=== PATIENT | female | born 1990 | race Caucasian/White ===

== ENCOUNTER 2023-09-06 09:24 | Outpatient (CLI) | payer MEDICARE, SELFPAY ==
--- NOTE | 2023-09-06 09:32 | XR_ITS ---
FINAL REPORT CLINICAL HISTORY: left ankle pain,fall FINDINGS: LEFT ANKLE Three views demonstrate an oblique, nondisplaced distal fibular fracture. Mortise is intact. An overlying cast is noted. The visualized joint spaces are normally aligned. There is diffuse soft tissue edema. IMPRESSION: Oblique, nondisplaced fracture of the distal fibula. Reviewed, Interpreted and Dictated by Jeff Malave MD Transcribed by Adri Zaman Authenticated and [facility]
[2023-09-06 12:16] LABS: Basophils # 0.1 K/mm3 (0-0.2); Basophils % 0.7 % (0.1-2.0); Eosinophils # 0.1 K/mm3 (0.0-0.4); Eosinophils % 0.8 % (0.1-12.0); Hematocrit 42.4 % (37.0-47.0); Hemoglobin 13.4 g/dL (12.2-16.2); Lymphocytes # 1.6 K/mm3 (0.7-4.5); Lymphocytes % 17.3 % (10-50); Mean Corpuscular HGB Conc 31.6 g/dL (31.8-35.4); Mean Corpuscular Hemoglobin 28.3 pg (27.0-31.2); Mean Corpuscular Volume 89.5 fl (81-99); Mean Platelet Volume 9.2 fl (7.4-10.4); Monocytes # 0.5 K/mm3 (0.1-1.0); Monocytes % 4.9 % (1.7-9.3); Neutrophils # 7.3 K/mm3 (1.8-7.8); Neutrophils % 76.4 % (37.0-80.0); Platelet Count 308 K/mm3 (142-424); Red Blood Count 4.74 M/mm3 (4.20-5.40); Red Cell Distribution Width 13.6 % (11.5-17.5); White Blood Count 9.5 K/mm3 (4.8-10.8)
[2023-09-06 12:39] LABS: Alanine Aminotransferase 88 U/L (12-78); Albumin Level 4.4 g/dl (3.5-5.0); Albumin/Globulin Ratio 1.3 (1.1-1.8); Alkaline Phosphatase 51 U/L (38-126); Anion Gap 13.6 mEq/L (5-15); Aspartate Amino Transferase 61 U/L (14-36); Bilirubin,Total 0.8 mg/dl (0.2-1.3); Blood Urea Nitrogen 10 mg/dl (7-17); Calcium 9.7 mg/dl (8.4-10.2); Carbon Dioxide 31 mmol/L (22.0-30.0); Chloride 101 mmol/L (98-107); Estimated Glomerular Filt Rate 82 ml/min (>60); GFR (African American) 99 ML/MIN (>60); Globulin 3.5 g/dL (1.3-3.2); Glucose 95 mg/dl (74-100); Potassium 4.6 mmoL/L (3.5-5.1); Sodium 141 mmol/L (136-145); Total Protein,Serum 7.9 g/dl (6.3-8.2)
== END 2023-09-06 23:59 | disposition home or self-care (01) ==
LOC: RAD 09:29
PROVIDERS: Physician Assistant; Visit Provider Physician Assistant Surgical
DX: M25.572 Pain in left ankle and joints of left foot (principal); Z01.818 Encounter for other preprocedural examination
CPT/HCPCS: 36415; 73610; 80053; 85025

== ENCOUNTER 2023-09-20 06:00 | Day surgery (SDC) | payer MEDICARE, MEDICAID, SELFPAY ==
[2023-09-20] VITALS (11 sets, daily range): BP systolic 129–167; BP diastolic 73–88; PULSE 88–112; RESP 14–18; TEMP 36.1–43; O2SAT 95–98; BMI 35.2
[2023-09-20 06:28] LABS: Urine Pregnancy, HCG Qual. Negative (Negative)
[2023-09-20] MEDS: LACTATED RINGERS 1000ML 1,000 ML 100 ML IV (06:35)
--- NOTE | 2023-09-20 07:47 | EXP.ANES.CKL ---
[facility] Disclaimer: The information contained in this section may have been updated after the patient was seen, as this information can be updated by other users. Medical History No significant past medical history Family History Other No significant family history Social History (Updated 09/20/23 @ 06:34 by Amanda Dover RN) Smoking Status: Never smoker alcohol intake: never substance use type: denies use current occupational status: other Travel in the last 8 weeks: None [facility] Anesthesia Checklist Patient Identification Patient Identification: Arm Band and Family Structural Data Admitted From: Home Planned Operative Procedure/s: ORIF Left Ankle Consent for Planned Operative Procedure(s) Verified: Yes Verified Documents: Surgical Consent and History and Physical NPO Status Verified Time NPO: 00:00 Additional verifications Anesthesia Reactions: No Hx Blood Transfusions: No Blood Transfusion Reaction: No Airway Assessment Mallampati Score:: Class II C-Spine Mobility Assessed: Yes TMJ Mobility Assessed: Yes Dentition: Poor Dentition Neurological Assessment Level of Consciousness: Awake and Alert Anesthesia Plan Anesthesia Risk discussed: Yes Anesthesia Plan: Verified ASA Class: II Anesthesia Type: General w/block (Left Popliteal/Adductor Canal Nerve Block. Risks/benefits of nerve block explained. Pt verbalized understanding. )
[2023-09-20] MEDS: CEFAZOLIN SODIUM 2 GM in 0.9 % SODIUM CHLORIDE 100 ML IV (08:09)
--- NOTE | 2023-09-20 09:26 | XR_ITS ---
FINAL REPORT CLINICAL HISTORY: LEFT ORIF FINDINGS: FLUOROSCOPY LESS THAN 1 HOUR HISTORY: FINDINGS: Fluoroscopic guidance was provided for intraoperative visualization of instrument placement in a patient undergoing ORIF of a left ankle fracture. 3 spot films were obtained. 1 minute seconds of fluoroscopy time were used, and the dosage was 2.3 mGy. IMPRESSION: As above. Reviewed, Interpreted and Dictated by Estuardo Welch III, MD Transcribed by Paula Alcocer Authenticated and [facility]
--- NOTE | 2023-09-20 09:41 | P.OP_ITS ---
Date of procedure: 09/20/23 Pre-op Diagnosis:: Left ankle trimalleolar ankle fracture Post-op Diagnosis:: Same Procedure performed:: Open reduction internal fixation left trimalleolar ankle fracture without fixation of posterior malleolus fragment Surgeon:: Dirk Yuan DO Armored Service Technician(s):: loc finley CULINARY CHEF:: José Antonio Burrell Anesthesia: GETA and regional Estimated blood loss (mL): 0 Operative findings:: Small posterior malleolus fragment involving a small percentage of the joint stable ankle without needed fixation along with trimalleolar ankle fracture Operative note:: Patient was identified preoperatively. Left ankle marked with yes my initials. Transferred operative suite. Placed upon operating bed. General anesthesia ministered airway secured after undergoing a block with anesthesia. Left lower extremities and prepped and draped normal sterile fashion. Once prepped and draped final operative timeout performed to identify proper patient procedure and extremity. Everyone involved the case agreed. There is no counter indications to beginning. Did receive preoperative antibiotics. Marking pen was used to tomer the bony landmarks of the ankle and the fracture site which was identified on the x-ray. Esmarch was used to exsanguinate extremity pneumatic tourniquet inflated to 300 mmHg. Skin knife was used incise through skin dissection was taken down to identify the fracture site in the fibula. This is a comminuted fracture with a lateral butterfly fragment. Fracture was dissected the ends of the fracture were cleaned and preliminary fixation was held with a [id number] clamp. Arthrex fibula plate was selected to the proper length and size and measured via x-ray. At that time attention was brought to placement of the lag screw. Curry darwendy AO fashion and a lag screw was placed anterior to posterior for fixation of the fibula. This did reduce anatomically and restored ankle alignment. Then with the selected plate was placed on the bone cortical screws placed proximally distal screws locking were placed distally with care taken to allow for a hole in the plate to hold the anticipated tight rope implant. Once fixation of the fibula was performed it was tested and did So repair of the syndesmosis was indicated. The guidewire from the Arthrex tight rope was utilized then drilled 4 cortices. The deployment device was placed and the button was flipped and reduction of the syndesmosis was viewed and performed by pulling in line with the knotless tight rope mechanism and monitoring this via C arm. Once this was complete and reduced the ends of the tight rope were cut. Attention is then brought to the medial malleolus which had lined up perfectly some guidewires were placed under direct visualization on the AP and lateral views to avoid the tight rope mechanism and to guidewires were placed for 4 oh cannulated screws this was then overdrilled and 2 size 42 4.0 cannulated screws were placed the medial malleolus to give good fixation. Lateral view was used the ankle was flexed and extended the posterior malleolus fragment was small did not require fixation Irrigation of the wound performed. Deep layers closed with 0 Vicryl subcutaneous 2-0 Vicryl 3-0 nylon the skin sterile dressing placed well-padded posterior and sterile splint placed patient waken anesthesia taken recovery stable condition. Condition: stable Disposition: PACU Complications:: None apparent
--- NOTE | 2023-09-20 10:08 | P.PNANES_ITS ---
[facility] Anesthesia Record Part I Anesthesia Record I Intake, IV Amount: 1,600 Hydration: Adequate Estimated blood loss (mL): 5 Urine output (mL): 0 Blood Products used (#): none Blood Pressure: 134/73 SaO2: 95 Pulse Rate: 112 Airway Patency: Patent Respiratory Rate: 16 Temperature: 98.9 F Patient is:: Drowsy and Stable Stable to PACU at:: 10:00
--- NOTE | 2023-09-20 10:34 | SUR.PHASEI ---
1030- detailed report given to kena mon in post op. Pt in stable condition, VSS, dressings CDI.
--- NOTE | 2023-09-20 11:16 | P.PNANES_ITS ---
[facility] Anesthesia Record Part II Anesthesia Record Part II Discharge Time: 10:30 Destination: Surgical Day Care (OP Surgery) PACU nurse assessment reviewed?: Yes Patient Condition:: Good Anesthesia Complications:: None Swallowing reflex intact?: Yes Airway Patency: Patent Cyanosis?: No Blood Pressure: 167/88 SaO2: 98 Respiratory Rate: 16 Pulse Rate: 101 Temperature: 98.7 F Mental Status: Alert & Oriented Pain level:: 0 Nausea and/or vomitting:: None Intake, IV Amount: 0 Hydration: Adequate
== END 2023-09-20 11:05 | disposition home or self-care (01) ==
PROVIDERS: PCP Family Medicine; Visit Provider Orthopaedic Surgery
PROC: (CPT 27822; principal; 2023-09-20 07:30)
DX: S82.852A Displaced trimalleolar fracture of left lower leg, initial encounter for closed fracture (principal)
CPT/HCPCS: 27822; 73600; 76000; 81025; 96374; C1713; C1776; J0690; J2405; J7120

== ENCOUNTER 2023-10-04 10:12 | Outpatient (CLI) | payer MEDICARE, MEDICAID, SELFPAY ==
--- NOTE | 2023-10-04 10:24 | XR_ITS ---
FINAL REPORT CLINICAL HISTORY: lt ankle pain COMPARISON: Intraoperative films dated 09/20/2023 FINDINGS: LEFT ANKLE: Three views show postoperative changes in the distal fibula and medial malleolus. The ankle mortise is intact. The joint spaces appear normal. IMPRESSION: Postoperative changes in the distal fibula and medial malleolus consistent with recent surgery. Reviewed, Interpreted and Dictated by Salvador Hernadez MD Transcribed by Paula Alcocer Authenticated and [facility]
== END 2023-10-04 23:59 | disposition home or self-care (01) ==
LOC: RAD 10:14
PROVIDERS: PCP Family Medicine; Visit Provider Physician Assistant
DX: M25.572 Pain in left ankle and joints of left foot (principal)
CPT/HCPCS: 73610

== ENCOUNTER 2023-10-30 08:51 | Outpatient (CLI) | payer MEDICARE, MEDICAID, SELFPAY ==
--- NOTE | 2023-10-30 09:06 | XR_ITS ---
FINAL REPORT CLINICAL HISTORY: Lt Ankle Pain COMPARISON: 10/04/2023 FINDINGS: AP, oblique, and lateral views of the left ankle were obtained. Patient is status post ORIF of the medial and lateral malleoli. The hardware is intact. There has been interval healing of the previously seen fractures. The bones are osteopenic, likely related to disuse. Soft tissue edema is identified. IMPRESSION: Healing fractures as above. Reviewed, Interpreted and Dictated by Sofi Reeder MD Transcribed by Rosenda Lomas Authenticated and [facility]
== END 2023-10-30 23:59 | disposition home or self-care (01) ==
PROVIDERS: PCP Family Medicine; Visit Provider Family Medicine
DX: S82.852D Displaced trimalleolar fracture of left lower leg, subsequent encounter for closed fracture with routine healing (principal); M25.572 Pain in left ankle and joints of left foot
CPT/HCPCS: 73610

== ENCOUNTER 2023-11-27 08:50 | Outpatient (CLI) | payer MEDICARE, MEDICAID, SELFPAY ==
--- NOTE | 2023-11-27 08:54 | XR_ITS ---
FINAL REPORT CLINICAL HISTORY: Lt Ankle pain, broke in 3 places in August of 2023 COMPARISON: 10/30/2023 FINDINGS: LEFT ANKLE: Three views of the left ankle were obtained. The patient is postoperative repair of fractures of the distal tibia and fibula with orthopedic plates and screws. There is a subacute fracture line of the medial malleolus as well as the distal fibula, overall stable since the prior exam of October 29. There is no acute fracture or dislocation. The joint spaces and mortise are intact. Soft tissue swelling is noted surrounding the ankle. IMPRESSION: Postoperative repair of fractures of the distal fibula and tibia, overall stable since the prior exam of October 29. Soft tissue swelling remains surrounding the ankle. Reviewed, Interpreted and Dictated by Estuardo Welch III, MD Transcribed by Paula Alcocer Authenticated and [facility]
== END 2023-11-27 23:59 | disposition home or self-care (01) ==
LOC: RAD 08:51
PROVIDERS: PCP Family Medicine; Visit Provider Physician Assistant
DX: M25.572 Pain in left ankle and joints of left foot (principal)
CPT/HCPCS: 73610

== ENCOUNTER 2024-01-09 09:00 | Outpatient (RCR) | payer MEDICARE, MEDICAID, SELFPAY ==
--- NOTE | 2023-12-03 10:09 | HMH.PTOPEV ---
PT Outpatient Evaluation Rehab PT Outpatient Evaluation Start: 12/03/23 08:01 Freq: Status: Active Protocol: Document 12/03/23 08:01 PDESEROUX (Rec: 12/03/23 10:09 PDESEROUX Desktop) E-signed By Jc Goodwin, PT Outpatient Therapy Subjective History Subjective History Pt. is a 33 year old female who presents to [facility] Outpatient Physical Therapy Services in [place] for the initial evaluation this date(12/03/23) w/ c/o subacute and intermittent LLE ankle post- surgical P!, edema, and instability S/P LLE ankle ORIF in September. Pt. reports, I broke my ankle in 3 spots secondary to traumatic injury in August. Pt. vocalizes donning CAM bt. walker x3wks. w/ WBAT post surgery. Pt. reports being released from the CAM bt . walker w/ WBAT after RTMD. Recent diagnostic imaging indicates the bone has healed and to start Therapy per pt. report. Pt. denies having any restrictions per Surgeon at this time. Pt. reports she is limited to standing for 15' secondary to P!. Pt. describes P! as an ache that worsens to a sharpness 6/10 w/ being on her feet for longer durations of time. Pt. reports increased instability the longer she is standing on her feet secondary to muscle weakness, describes symptoms as it moves. Pt. reports having some symptom relief w/ resting and using a compression sock. Pt. RTMD 12/25/23. Current medications and PMH unremarkable. New diagnosis of cancer in past 12 No months? Chief Complaint Pain,Stiff,Clicks,Swelling, Gives out/Unstable,Weakness Symptom Type Ache,Throb,Sharp,Dull,Other Symptoms Relieved By Rest/Positioning,Ice,Brace/ Support Symptoms Aggravated By Standing,Physical Activity, Twisting,Walking Prior Functional Limitations None Current Functional Limitations Housework,Driving,Standing, Squatting,Recreation Activity, Walking,Stairs Symptom Description Intermittent,Activity Dependent Level of pain today (0-10) 0 Pain scale - at its best (0-10) 0 Pain scale - at its worst (0-10) 6 Ankle/Foot Eval Gait Observation General Gait Pattern Observation Antalgic Gait,Decrease Weight Bear (L),Decrease Stride Lngth (R) Assistive Device Ambulation Assistive Device None Palpation Tenderness left Ankle/Foot Palpation Findings Tenderness Ankle/Foot Palpation Overall Comment grade 4 +TTP to lateral malleolus, peroneal tendons ATF TTP negative PTF TTP negative CF TTP negative Deltoid ligament TTP positive ROM Ankle/Foot Dorsiflexion w/Knee Extended +15 Active Range Motion (degrees) Ankle/Foot Dorsiflexion w/Knee Extended +10 Passive Range (degrees) Ankle/Foot Plantar Flexion Active Range WNL of Motion (degrees) Ankle/Foot Eversion Active Range of 12 Motion (degrees) Ankle/Foot Eversion Passive Range of 14 Motion (degrees) Ankle/Foot Inversion Active Range of 15 Motion (degrees) Ankle/Foot Inversion Passive Range of 18 Motion (degrees) Ankle/Foot ROM Limitations Soft Tissue Tightness,Muscle Weakness,Pain Great Toe ROM Reason Not Measured Within Functional Limits Accessory Movements Ankle Accessory Movements that Elicit Fibular Dorsal Mathews,Fibular Symptoms Ventral Mathews,Tibial Dorsal Mathews,Tibial Ventral Mathews MMT left Ankle Dorsiflexion Strength Grade 3+ Fair+ Ankle Plantarflexion Strength Grade 3+ Fair+ Foot Eversion Strength Grade 3+ Fair+ Foot Inversion Strength Grade 3+ Fair+ Ankle Dorsiflexors Muscle Tone Severe Hypertonicity Description Special Tests Ankle Anterior Drawer Test Negative Left Ankle Inversion (supination) Test Negative Left Ankle Posterior Drawer Test Negative Left Foot/Heel Tap/Percussion Test Negative Left Neuro tests normal sensation to monofilament Yes Outpatient Therapy Assessment Impairments Problems/Impairmments Palpation Tenderness,Impaired Range of Motion,Impaired Strength,Impaired Endurance, Impaired Gait Pattern,Impaired Walking,Impaired Standing, Impaired Driving,Impaired Shower/Bathing,Impaired Household Care,Impaired Stair Climbing,Impaired Incline Stepping,Impaired Stepping on Uneven Surface,Impaired Recreational Activities, Impaired Work Activities, Increased Edema,Subjective C/O Pain,Impaired Self Care/Self Management Prognosis Rehab Potential Good Comment w/ HEP compliancy Clinical Impression Consistent with Diagnosis Yes Consistent with S/P L ankle ORIF Short Term Goals Number of Weeks 2 Decreased Palpation Tenderness Yes: grade 1-2 +TTP to TTP assessment above Decrease Subjective C/O Pain Yes: worse:08/23 Patient to be Ind w/ HEP Yes Care Home Goals Number of Weeks 6-8 Decreased Palpation Tenderness Yes: grade 1 +TTP to TTP assessment above Increase Range of Motion Yes: LLE ankle A/PROM WFL-WNL grossly Increase Strength Yes: 4+ to 5/5 LLE ankle MMT scores grossly Improve Gait Pattern without Assistive Yes: Pt. will be able to Device demonstrate a normal gait pattern x50 ft. w/o difficult Increase Ability to Walk Yes: >30' w/o difficulty Increase Ability to Stand Yes: >15' w/o difficulty Improve Ability For Household Care Yes Improve Ability to Step on Uneven Yes Surfaces Improve LEFI Score Yes Decrease Edema Yes: 1-2cm. improvement in fig -8 Decrease Subjective C/O Pain Yes: worse:-05/26 Patient to be Ind w/ Advanced HEP Yes Outpatient Therapy Plan of Care Treatment Plan May Include Therapeutic Exercise Including Home Yes Exercise Program Manual Therapy Techniques Yes Neuromuscular Re-education Yes Therapeutic Activities to Return to Yes Previous Functional/Work Level Gait Training Yes ADL/Self Care Education Yes Dry Needling Yes Thermal Modalities Yes Electrical Stimulation Yes Ultrasound/Phonophoresis Yes Iontophoresis Yes Vasopneumatic Compression Pump Yes Massage Yes Eval/Re-Eval Yes Frequency Times per week 2 Duration Number of Weeks 6-8 Addendums This patient is a candidate for social No or vocational rehab? Patient/Guardian verbally acknowledges Yes understanding of treatment program and consents to further treatment? Patient/Guardian verbally acknowledges Yes understanding of diagnosis, prognosis and goals for treatment? Eval Complexity PT Charges 75606 - Low Complexity Shoulder/Elbow Eval Shoulder Objective Measurements Elbow Objective Measurements PHYSICIAN CERTIFICATION: I certify the specified therapy services for Malika Yarbrough are required, authorized, and reviewed every 30 days.
== END 2024-02-05 16:26 | disposition home or self-care (01) ==
LOC: PT 09:00
PROVIDERS: Visit Provider Orthopaedic Surgery
DX: M25.372 Other instability, left ankle (principal); Z96.662 Presence of left artificial ankle joint; Z98.890 Other specified postprocedural states
CPT/HCPCS: 97110; 97112; 97140; 97163; 97164; 97530